=== PATIENT | male | born 1990 | race Caucasian/White ===

== ENCOUNTER 2018-02-02 08:58 | Emergency (ER) | payer SELFPAY ==
[2018-02-02] MEDS ORDERED: MORPHINE 4 MG/ML SYR ONE ×2 (09:45→10:54)
[2018-02-02] MEDS ORDERED: ONDANSETRON 4 MG/2 ML VIAL ONE ×2 (09:45→10:54)
[2018-02-02] MEDS ORDERED: NA CHLORIDE 0.9% 500 ML ONE (09:45)
[2018-02-02 10:06] LABS: Absolute Lymphocytes (CBC) 1.1 K/uL (0.7-4.9); Absolute Monocytes 1.4 K/uL (0.1-1.3); Absolute Neutrophil 11.4 K/uL (1.8-8.0); Basophils % 0.1 % (0-1.3); Eosinophils % 1.2 % (0-4.4); Hematocrit 41.7 % (39.6-49.0); Lymphocytes % 7.6 % (15.3-44.8); MCH 32.1 pg (27.0-35.0); MCV 96.1 fL (80-100); Monocytes % 9.9 % (3.3-12.3); RBC Red Blood Cell Count 4.34 M/uL (4.33-5.43)
[2018-02-02 10:26] LABS: ALT/SGPT 47 U/L (12-78); AST/SGOT 38 U/L (15-37); Albumin 3.6 g/dL (3.4-5.0); Alkaline Phosphatase 160 U/L (45-117); BUN Blood Urea Nitrogen 10 mg/dL (7-18); Bicarbonate 26 mmol/L (21-32); Bilirubin Direct 0.3 mg/dL (0-0.2); Bilirubin Total 1.4 mg/dL (0.2-1.0); Glucose Level 96 mg/dL (74-106); Lipase 185 U/L (73-393); Potassium 3.9 mmol/L (3.5-5.1); Protein, Total 7.6 g/dL (6.4-8.2); Sodium Level 140 mmol/L (136-145)
[2018-02-02] MEDS ORDERED: DIPHENHYDRAMINE 25 MG TAB/CAP ONE (10:26)
[2018-02-02 10:27] LABS: Blood Morphology Comment NOT SEEN (NOT SEEN); Platelet Estimate ADEQ; Urine White Blood Cell Casts OK
--- NOTE | 2018-02-02 11:44 | RAD REPORT ---
EXAM DESCRIPTION: CT - Abdomen Pelvis W Contrast - 02/02/2018 11:27 am CLINICAL HISTORY: Abdominal pain with vomiting COMPARISON: none. TECHNIQUE: Computed axial tomography of the abdomen pelvis was obtained. 100 cc Isovue-300 was admin istered intravenously. Oral contrast was not requested which limits evaluation of bowel. All CT scans are performed using dose optimization technique as appropriate and may include automated exposure control or mA/KV adjustment according to patient size. FINDINGS: The liver, pancreas, adrenals and left kidney appear unremarkable. 2 millimeter nonobstructing right renal calculus. 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 There is no evidence of diverticulitis. Cavernous transformation of the portal vein suspected IMPRESSION: 2 millimeter nonobstructing right renal calculus Cavernous transformation of the portal vein
[2018-02-02 11:58] LABS: Urine Blood NEGATIVE (NEG); Urine Glucose NEGATIVE (NEG); Urine Protein NEGATIVE (NEG)
[2018-02-02] MEDS ORDERED: HYDROMORPHONE HCL 0.5 MG/0.5 ML INJ ONE (12:38)
--- NOTE | 2018-02-02 12:58 | ER ---
Nurse's Notes [facility] Name: Jose Jay Age: 27 yrs Sex: Male : 1990 Arrival Date: 02/02/2018 Time: 09:02 Bed 18 Private MD: None, None Diagnosis: Hematemesis;Esophageal varices with bleeding Presentation: 02/02 09:14 Transition of care: patient was not received from another setting of care. Onset of aa5 symptoms was February 02, 2018. 09:14 Method Of Arrival: Ambulatory aa5 09:14 Presenting complaint: Patient states: abd pain and vomited blood twice. Pt reports aa5 symptoms began this morning. Risk Assessment: Do you want to hurt yourself or someone else? Patient reports no desire to harm self or others. Initial Sepsis Screen: Does the patient meet any 2 criteria? No. Patient's initial sepsis screen is negative. Does the patient have a suspected source of infection? No. Patient's initial sepsis screen is negative. Care prior to arrival: None. 09:14 Acuity: ROCCO 3 aa5 Historical: - Allergies: 09:20 Demerol; aa5 09:20 Phenergan; aa5 09:20 NSAIDS; aa5 09:22 fentanyl; aa5 - PMHx: 09:20 GI Bleed; Stomach Ulcers; aa5 - PSHx: 09:20 Spleenorenal shunt; peritonitis sx; spine for staph infection; Partial spleenectomy; aa5 - Immunization history:: Adult Immunizations up to date. - Social history:: Smoking status: Patient uses tobacco products, smokes one-half pack cigarettes per day. - Ebola Screening: : No symptoms or risks identified at this time. Screenin:40 Abuse screen: Denies threats or abuse. Nutritional screening: No deficits noted. em Tuberculosis screening: No symptoms or risk factors identified. Fall Risk None identified. Assessment: 09:40 General: Appears in no apparent distress. uncomfortable, Behavior is calm, cooperative, em Denies fever. Pain: Complains of pain in right upper quadrant Pain currently is 7 out of 10 on a pain scale. Neuro: Level of Consciousness is awake, alert, obeys commands, Oriented to person, place, time, situation. Cardiovascular: Capillary refill < 3 seconds Patient's skin is warm and dry. Respiratory: Airway is patent Respiratory effort is even, unlabored, Respiratory pattern is regular, symmetrical. GI: Abdomen is flat, Bowel sounds present X 4 quads. Abd is soft X 4 quads Abdomen is tender to palpation in right upper quadrant and left upper quadrant Reports nausea, vomiting, vomiting blood Patient currently denies bloody stool, diarrhea. : No signs and/or symptoms were reported regarding the genitourinary system. EENT: No signs and/or symptoms were reported regarding the EENT system. Derm: Skin is intact, Skin is pink, warm \T\ dry. Musculoskeletal: Capillary refill < 3 seconds, Range of motion: intact in all extremities. 10:00 Reassessment: Patient appears in no apparent distress at this time. I agree with above iw assessment by Wilver Mendoza LVN. 10:31 Reassessment: Patient appears in no apparent distress at this time. Patient and/or em family updated on plan of care and expected duration. Pain level reassessed. Patient is alert, oriented x 3, equal unlabored respirations, skin warm/dry/pink. rates pain 8/10, provider notified, new pain medication ordered. 11:35 Reassessment: Patient appears in no apparent distress at this time. Patient and/or em family updated on plan of care and expected duration. Pain level reassessed. Patient is alert, oriented x 3, equal unlabored respirations, skin warm/dry/pink. reports medication has not helped with pain, provider notified, new medication orders received. 12:36 Reassessment: Patient appears in no apparent distress at this time. Patient and/or em family updated on plan of care and expected duration. Pain level reassessed. Patient is alert, oriented x 3, equal unlabored respirations, skin warm/dry/pink. Dr. Hurley at bedside. 13:13 Reassessment: Patient appears in no apparent distress at this time. Patient and/or em family updated on plan of care and expected duration. Pain level reassessed. Patient is alert, oriented x 3, equal unlabored respirations, skin warm/dry/pink. sent labs for send off, lab notified. Vital Signs: 09:18 BP 120 / 94; Pulse 97; Resp 16 S; Temp 98.6(TE); Pulse Ox 99% on R/A; Weight 88.45 kg aa5 (R); Height 6 ft. 1 in. (185.42 cm) (R); Pain 7/10; 10:09 BP 140 / 74; Pulse 88; Resp 18; Pulse Ox 97% on R/A; Pain 8/10; em 11:30 BP 132 / 84; Pulse 65; Resp 16; Pulse Ox 100% on R/A; em 12:35 BP 138 / 65; Pulse 65; Resp 18; Pulse Ox 99% on R/A; Pain 8/10; em 09:18 Body Mass Index 25.73 (88.45 kg, 185.42 cm) aa5 ED Course: 09:02 Patient arrived in ED. mr 09:02 None, None is Private Physician. mr 09:09 Casey Mancuso PA is PHCP. jr8 09:09 Migue Mariano MD is Attending Physician. jr8 09:14 Wilver Mendoza LVN is Primary Nurse. em 09:15 Arm band placed on Patient placed in an exam room, on a stretcher. aa5 09:18 Triage completed. aa5 09:40 Patient has correct armband on for positive identification. Placed in gown. Bed in low em position. Call light in reach. 09:40 Missed attempt(s): 20 gauge in right in left forearm. antecubital area. Bleeding em controlled, band aid applied, catheter tip intact. 10:09 Inserted saline lock: 22 gauge in right antecubital area, using aseptic technique. jb1 10:[address] via wheelchair. cw1 11:23 CT completed. Patient taken to an exam room, Patient moved back from CT. cw1 11:26 CT Abd/Pelvis - W/Contrast In Process Unspecified. EDMS 13:12 No provider procedures requiring assistance completed. IV discontinued, intact, em bleeding controlled, No redness/swelling at site. Pressure dressing applied. Administered Medications: 10:14 Drug: NS 0.9% 500 ml Route: IV; Rate: bolus; Site: right antecubital; em 10:15 Drug: Zofran 4 mg Route: IVP; Site: right antecubital; iw 10:52 Follow up: Response: No adverse reaction em 10:16 Drug: morphine 4 mg Route: IVP; Site: right antecubital; iw 10:52 Follow up: Response: No adverse reaction; Pain is unchanged, physician notified em 10:53 Drug: morphine 4 mg Route: IVP; Site: right antecubital; em 12:31 Follow up: Response: No adverse reaction em 10:54 Drug: Zofran 4 mg Route: IVP; Site: right antecubital; em 12:31 Follow up: Response: No adverse reaction em 12:54 Drug: Dilaudid 0.5 mg Route: IVP; Site: right forearm; iw Outcome: 13:12 Discharged to home ambulatory. em 13:12 Condition: stable 13:12 Discharge instructions given to patient, Instructed on discharge instructions, follow up and referral plans. medication usage, Demonstrated understanding of instructions, follow-up care, medications, Prescriptions given X 2. 13:14 Patient left the ED. em Signatures: Dispatcher [employer] EDLee Fountain jb1 Mariaelena Segura mr Reji, Wilver, CREW LEADER/CONTROL ROOM OPERATOR CREW LEADER/CONTROL ROOM OPERATOR em Marry Gaines RN RN iw Calderon, Audri, RN RN chas Seymour, Jessica cw1 Casey Mancuso PA PA jr8 Corrections: (The following items were deleted from the chart) 10:54 10:09 BP 140 / 74; Pulse 88bpm; Resp 48bpm; Pulse Ox 97% RA; Pain 8/10; em em
--- NOTE | 2018-02-02 12:58 | EDPHYS ---
Physician Documentation [facility] Name: Jose Jay Age: 27 yrs Sex: Male : 1990 Arrival Date: 02/02/2018 Time: 09:02 Bed 18 Private MD: None, None ED Physician Migue Mariano HPI: 02/02 09:56 This 27 yrs old Male presents to ER via Ambulatory with complaints of jr8 Abdominal Pain, Vomiting. 09:56 The patient presents with abdominal pain in the epigastric area, in the upper abdomen. jr8 Onset: The symptoms/episode began/occurred acutely, yesterday. The symptoms do not radiate. Associated signs and symptoms: Pertinent positives: nausea and vomiting, vomiting blood. The symptoms are described as stabbing. Modifying factors: The symptoms are alleviated by nothing, the symptoms are aggravated by nothing. Severity of pain: At its worst the pain was moderate in the emergency department the pain is unchanged. It is unknown whether or not the patient has had similar symptoms in the past. The patient has not recently seen a physician. History of esophageal varices since 2 years old . Historical: - Allergies: 09:20 Demerol; aa5 09:20 Phenergan; aa5 09:20 NSAIDS; aa5 09:22 fentanyl; aa5 - PMHx: 09:20 GI Bleed; Stomach Ulcers; aa5 - PSHx: 09:20 Spleenorenal shunt; peritonitis sx; spine for staph infection; Partial spleenectomy; aa5 - Immunization history:: Adult Immunizations up to date. - Social history:: Smoking status: Patient uses tobacco products, smokes one-half pack cigarettes per day. - Ebola Screening: : No symptoms or risks identified at this time. ROS: 09:56 Eyes: Negative for injury, pain, redness, and discharge, ENT: Negative for injury, jr8 pain, and discharge, Neck: Negative for injury, pain, and swelling, Cardiovascular: Negative for chest pain, palpitations, and edema, Respiratory: Negative for shortness of breath, cough, wheezing, and pleuritic chest pain, Back: Negative for injury and pain, MS/Extremity: Negative for injury and deformity, Skin: Negative for injury, rash, and discoloration, Neuro: Negative for headache, weakness, numbness, tingling, and seizure. 09:56 Abdomen/GI: Positive for abdominal pain, nausea and vomiting, hematemesis, Negative for constipation, abdominal cramps, abdominal distension, anorexia, dysphagia, black/tarry stool, rectal pain, rectal bleeding, bowel incontinence, flatulence. Exam: 09:56 Eyes: Pupils equal round and reactive to light, extra-ocular motions intact. Lids and jr8 lashes normal. Conjunctiva and sclera are non-icteric and not injected. Cornea within normal limits. Periorbital areas with no swelling, redness, or edema. ENT: Nares patent. No nasal discharge, no septal abnormalities noted. Tympanic membranes are normal and external auditory canals are clear. Oropharynx with no redness, swelling, or masses, exudates, or evidence of obstruction, uvula midline. Mucous membranes moist. Neck: Trachea midline, no thyromegaly or masses palpated, and no cervical lymphadenopathy. Supple, full range of motion without nuchal rigidity, or vertebral point tenderness. No Meningismus. Cardiovascular: Regular rate and rhythm with a normal S1 and S2. No gallops, murmurs, or rubs. Normal PMI, no JVD. No pulse deficits. Respiratory: Lungs have equal breath sounds bilaterally, clear to auscultation and percussion. No rales, rhonchi or wheezes noted. No increased work of breathing, no retractions or nasal flaring. Back: No spinal tenderness. No costovertebral tenderness. Full range of motion. Skin: Warm, dry with normal turgor. Normal color with no rashes, no lesions, and no evidence of cellulitis. MS/ Extremity: Pulses equal, no cyanosis. Neurovascular intact. Full, normal range of motion. Neuro: Awake and alert, GCS 15, oriented to person, place, time, and situation. Cranial nerves II-XII grossly intact. Motor strength 5/5 in all extremities. Sensory grossly intact. Cerebellar exam normal. Normal gait. 09:56 Abdomen/GI: Inspection: scar(s), are noted in the , Bowel sounds: active, all quadrants, Palpation: soft, in all quadrants, moderate abdominal tenderness, in the epigastric area and right upper quadrant, mass, is not appreciated, rebound tenderness, is not appreciated, voluntary guarding, is elicited in the epigastric area and right upper quadrant, involuntary guarding, is not appreciated, no appreciated organomegaly, Indicators: McBurney's point is not tender, Jones's sign is negative, Rovsing's sign is negative. Vital Signs: 09:18 BP 120 / 94; Pulse 97; Resp 16 S; Temp 98.6(TE); Pulse Ox 99% on R/A; Weight 88.45 kg aa5 (R); Height 6 ft. 1 in. (185.42 cm) (R); Pain 7/10; 10:09 BP 140 / 74; Pulse 88; Resp 18; Pulse Ox 97% on R/A; Pain 8/10; em 11:30 BP 132 / 84; Pulse 65; Resp 16; Pulse Ox 100% on R/A; em 12:35 BP 138 / 65; Pulse 65; Resp 18; Pulse Ox 99% on R/A; Pain 8/10; em 09:18 Body Mass Index 25.73 (88.45 kg, 185.42 cm) aa5 MDM: 09:10 Patient medically screened. jr8 12:54 Data reviewed: vital signs, nurses notes, lab test result(s), radiologic studies, CT jr8 scan. Data interpreted: Pulse oximetry: on room air is 99 %. Interpretation: normal. Counseling: I had a detailed discussion with the patient and/or guardian regarding: the historical points, exam findings, and any diagnostic results supporting the discharge/admit diagnosis, lab results, radiology results, the need for further work-up and treatment in the hospital. ED course: Dr. Hurley came and evaluated patient for admission. We called Dr. Walton to see if this case is something he is comfortable with consulting on due to anatomic anomaly and his type of Varices. Anton wants to transfer for higher care. Patient does not want to be transferred and wants to go home and if he were to have bleeding again that he would call 911 or come back, but could not be transferred at this time. Patient understands the risk of bleeding out with the varices. Patient currently with only minimal abdominal pain and without active hematemesis . 02/02 09:35 Order name: Basic Metabolic Panel; Complete Time: 10:40 jr8 02/02 09:35 Order name: CBC with Diff; Complete Time: 10:40 jr8 02/02 09:35 Order name: Creatinine for Radiology; Complete Time: 10:24 jr8 02/02 09:35 Order name: Hepatic Function; Complete Time: 10:40 [facility] 02/02 09:35 Order name: Lipase; Complete Time: 10:40 [facility] 02/02 09:35 Order name: TS [facility] 02/02 10:08 Order name: CBC Smear Scan; Complete Time: 10:40 [facility] 02/02 10:24 Order name: ABO/RH no charge; Complete Time: 10:25 [facility] 02/02 10:40 Order name: CT Abd/Pelvis - W/Contrast; Complete Time: 11:57 [facility] 02/02 10:42 Order name: Urine Dipstick--Ancillary (enter results); Complete Time: 12:02 eb 02/02 10:43 Order name: Antibody Identification [facility] 02/02 11:32 Order name: Antibody Screen [facility] 02/02 12:54 Order name: ANTIBODY CONSULTATION [facility] 02/02 09:35 Order name: IV Saline Lock; Complete Time: 10:42 [facility] 02/02 09:35 Order name: Labs collected and sent; Complete Time: 10:02 [facility] 02/02 09:35 Order name: Urine Dipstick-Ancillary (obtain specimen); Complete Time: 10:42 [facility] Administered Medications: 10:14 Drug: NS 0.9% 500 ml Route: IV; Rate: bolus; Site: right antecubital; em 10:15 Drug: Zofran 4 mg Route: IVP; Site: right antecubital; iw 10:52 Follow up: Response: No adverse reaction em 10:16 Drug: morphine 4 mg Route: IVP; Site: right antecubital; iw 10:52 Follow up: Response: No adverse reaction; Pain is unchanged, physician notified em 10:53 Drug: morphine 4 mg Route: IVP; Site: right antecubital; em 12:31 Follow up: Response: No adverse reaction em 10:54 Drug: Zofran 4 mg Route: IVP; Site: right antecubital; em 12:31 Follow up: Response: No adverse reaction em 12:54 Drug: Dilaudid 0.5 mg Route: IVP; Site: right forearm; iw Disposition: 16:33 Co-signature as Attending Physician, Migue Mariano MD. Disposition: 02/02/18 12:57 Patient has left against medical advice. Impression: Hematemesis, Esophageal varices with bleeding. - Patients states they are going to Home. - Condition is Stable. - Discharge Instructions: Gastrointestinal Bleeding, Hematemesis, Esophageal Varices. - Prescriptions for Protonix 40 mg Oral Tablet - take 1 tablet by ORAL route once daily; 30 tablet. Zofran 4 mg Oral Tablet - take 1 tablet by ORAL route every 12 hours As needed; 20 tablet. Work release form form. Follow up: Private Physician; When: 2 - 3 days; Reason: Recheck today's complaints, Continuance of care, Re-evaluation by your physician. - Problem is new. - Symptoms have improved. Signatures: Dispatcher [employer] EDMS Wilver Mendoza, SCREEN ROLLER SCREEN ROLLER em Marry Gaines, RN RN iw Nia Bhatt RN RN aa5 Casey Mancuso PA PA jr8 Starr, Gregory, MD MD gs Corrections: (The following items were deleted from the chart) 12:58 12:54 ED course: Dr. Hurley came and evaluated patient for admission. We called Dr. mathew Walton to see if this case is something he is comfortable with consulting on due to anatomic anomaly and his type of Varices. Anton wants to transfer for higher care. Patient does not want to be transferred and wants to go home and if he were to have bleeding again that he would call 911 or come back, but could not be transferred at this time. Patient understands the risk of bleeding out with the varices. . jr8 13:14 12:57 02/02/2018 12:57 Patients has left against medical advice. Impression: em Hematemesis; Esophageal varices with bleeding. Patient states they are going to Home. Condition is Stable. Follow up: Private Physician; When: 2 - 3 days; Reason: Recheck today's complaints, Continuance of care, Re-evaluation by your physician. Problem is new. Symptoms have improved. jr8
--- NOTE | 2018-02-02 14:05 | P.CNS ---
Date of Consult: 02/02/18 Reason for Consult: ER evaluation Requesting Physician: Dylan Mancuso Primary Care Provider: Dr. Painting([place], [place]); Shawn CHARLES Chief Complaint: Abdominal pain, hematemesis History of Present Illness: 27-year-old male presented emergency room with epigastric pain and hematemesis. Patient has complicated history of defect that led to portal hypertension gastrocs of the, esophageal varices, and partial splenectomy. 2016 patient had history of GI bleed. Since then patient has required portal vein shunt. Patient had to go to [place] to see a specialist for this. He reports at that time that he was to be considered for triple organ transplant. Portal vein shunt was placed. Today he had increasing abdominal epigastric pain. He reports having nausea with hematemesis. He reported about a cup of blood. Patient came to the ER for further evaluation. In the ER patient evaluated. Hemoglobin 13.9, LFTs were elevated with an AST of 38, ALT of 47, alk-phos of 160, total bilirubin 1.4 and a direct bilirubin is 0.3. Patient continued to have abdominal pain. 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 I was asked to evaluate for possible admission verses transfer. When I saw the patient ER, pain was still present. Home medications list reviewed: Yes - Past Medical/Surgical History Diabetic: No -: Esophageal varices -: History of partial splenectomy -: Portal vein shunt -: Portal hypertension gastropathy -: GERD -: Tobacco abuse -: Partial splenectomy -: Portal vein shunt Psychosocial/ Personal History: Patient is . He has 2 children. 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 - Family History Father Family History: Reviewed- Non-Contributory - Social History Smoking Status: Current every day smoker Counseled patient to stop smoking for: less than 10 minutes Smoking therapy provided: Yes Patient receptive to therapy: Yes Alcohol use: No CD- Drugs: No Caffeine use: Yes Place of Residence: Home Review of Systems General: As per HPI Eyes: Unremarkable ENT: Unremarkable Respiratory: Unremarkable Cardiovascular: Unremarkable Gastrointestinal: Nausea, Vomiting, Abdominal Pain, As per HPI Genitourinary: Unremarkable Musculoskeletal: Unremarkable Integumentary: Unremarkable Neurological: Unremarkable Lymphatics: Unremarkable Physical Examination Temp Pulse Resp BP Pulse Ox 98.6 F 65 18 138/65 02/02/18 09:18 02/02/18 12:35 02/02/18 12:35 02/02/18 12:35 General: Alert, In no apparent distress, Oriented x3, Cooperative HEENT: Atraumatic, Mucous membr. moist/pink Neck: Supple, No Thyromegaly Respiratory: Clear to auscultation bilaterally, Normal air movement Cardiovascular: Normal pulses, Regular rate/rhythm Gastrointestinal: Normal bowel sounds, Hypoactive, Non-distended, No masses, No rebound, No guarding, Tenderness (Epigastric abdominal pain) Musculoskeletal: No erythema, No tenderness, No warmth Integumentary: No tenderness/swelling, No erythema, No warmth, No cyanosis Neurological: Normal speech, Normal strength at 5/5 x4 extr, Normal tone, Normal affect Laboratory Data (last 24 hrs) 02/02/18 09:50: Creatinine 0.80 02/02/18 09:50: WBC 14.1 H, Hgb 13.9, Hct 41.7, Plt Count 85 L 02/02/18 09:50: Sodium 140, Potassium 3.9, BUN 10, Creatinine 0.80, Glucose 96, Total Bilirubin 1.4 H, AST 38 H, ALT 47, Alkaline Phosphatase 160 H, Lipase 185 Conclusions/Impression: Impression: Epigastric abdominal pain with hematemesis complicated with history of esophageal varices, portal hypertension gastro per the, portal vein shunt, GERD , and upper GI bleed Plan: Case discussed at length with GI locally. Due to his current history and complicated prior history, it is recommended that he be transferred to a higher level care center to further assess. Patient will likely require GI evaluation with the possibility of cardiovascular surgery. Anatomy may be abnormal. Patient will need to be monitored closely. Patient may require transfusion. Patient will need EGD to further evaluate and possibly treat. Case discussed with ER. ER plans to transfer. Time Spent Managing Pts care (In Minutes): 55
== END 2018-02-02 13:14 | disposition left against medical advice (07) ==
LOC: ER 08:58
DX: I85.01 Esophageal varices with bleeding (principal); F17.210 Nicotine dependence, cigarettes, uncomplicated; Z88.5 Allergy status to narcotic agent; Z88.6 Allergy status to analgesic agent; Z88.8 Allergy status to other drugs, medicaments and biological substances
CPT/HCPCS: 36415; 74177; 80048; 80076; 81003; 83690; 85025; 86850; 86870; 86900; 86901; 99284; J1170; J2405; Q9967